=== PATIENT | female | born 1995 | race Two or more races ===

== ENCOUNTER → 2017-11-04 | Outpatient (CLI) | payer BC | LOC: M WUC 12:01 | DX: M51.36 Other intervertebral disc degeneration, lumbar region (principal); S39.012A Strain of muscle, fascia and tendon of lower back, initial encounter; X58.XXXA Exposure to other specified factors, initial encounter; Y92.9 Unspecified place or not applicable; Y93.9 Activity, unspecified; Y99.9 Unspecified external cause status | CPT/HCPCS: 72110 ==